=== PATIENT | female | born 1970 | race Caucasian/White ===

== ENCOUNTER → 2017-12-11 | Outpatient (CLI) | payer OTHER ==
[2016-02-09 18:09] VITALS: BMI 21.9
[~2017-12-11] MED LIST: AZI250 PO; CHLO-172 PO; CHOL10005 PO; FLAX100041 PO; FLUT16SP20 NS; GUALA600 PO; IBUP800T37 PO; KET10 PO; LACT1CAP4 PO; LOR5/325 PO; MULTIVIT; NAPR220C12 PO; ONDA4TAB PO; ONDA4TAB97 PO; OXYC-865 PO; PER PO; PHEN200T32 PO; VITA1CAP50 PO; [UNRECOGNIZED DRUG - CODE] OT
--- NOTE | 2017-12-11 15:32 | RADIOLOGY IMAGING REPORT ---
FACILITY: [facility] PATIENT NAME: YAMILEX CAMPBELL : [id number] MR: [id number] V: [id number] EXAM DATE: ORDERING PHYSICIAN: ERIC ALMARAZ TECHNOLOGIST: Magy Guajardo PROCEDURE:BILATERAL DIGITAL SCREENING MAMMOGRAM WITH CAD ASSISTED INTERPRETATION & 3D TOMOSYNTHESIS COMPARISON:Prior mammograms 03/18/15, 12/26/11. INDICATIONS:SCREENING FINDINGS: Dense heterogeneous fibroglandular tissue is seen throughout the breasts. The parenchymal pattern has remained stable allowing for difference in mammographic technique & patient positioning. There is no evidence of malignant appearing mass, malignant appearing calcifications or other secondary sign of malignancy in either breast. DIAGNOSTIC CATEGORY 1--NEGATIVE. RECOMMENDATIONS: ROUTINE MAMMOGRAM AND CLINICAL EVALUATION. IMPRESSION: BIRADS 1: Negative. No significant abnormality is seen. Dictated by: Carmen Matamoros M.D. on 12/11/2017 at 14:13 Transcribed by: FLORENCIA on 12/11/2017 at 14:17 Approved by: Carmen Matamoros M.D. on 12/11/2017 at 15:31 [facility]
== END ==
LOC: MAMO 01:19
PROVIDERS: ATTEND Nurse Practitioner Psychiatric/Mental Health
DX: Z12.31 Encounter for screening mammogram for malignant neoplasm of breast (principal)
CPT/HCPCS: 77063; 77067